=== PATIENT | female | born 1945 | race Asian ===

== ENCOUNTER 2018-09-08 09:08 | Day surgery (SDC) | payer MEDICARE, BC ==
[~2018-09-08] VITALS: Ht 162.6 cm; Wt 58.1 kg
[2018-09-08] MEDS ORDERED: ASPI-1158 MT (10:08)
[2018-09-08] MEDS ORDERED: LOSA100T14 MT (10:08)
[2018-09-08] MEDS ORDERED: SITA1TBM7 MT (10:08)
[2018-09-08] MEDS ORDERED: ATOR20TA MT (10:08)
[2018-09-08] MEDS ORDERED: LEVO50TA8 MT (10:08)
[2018-09-08] MEDS ORDERED: IOHEXOL-300 100 ML BOTTLE ONE (10:25)
[2018-09-08] MEDS ORDERED: ASPIRIN/SOD BICARB/CITRIC ACID 324MG TAB EFF ONE (10:25)
[2018-09-08] MEDS ORDERED: LIDOCAINE HCL 1% 20ML VIAL (Pyxis) INJ ONE (10:26)
[2018-09-08] MEDS ORDERED: IODIXANOL 320MG/ML 100 ML BOTTLE IV ONE (10:26)
[2018-09-08] MEDS ORDERED: FENTANYL CITRATE/PF 50MCG/ML 2ML VIAL ONE (10:44)
[2018-09-08] MEDS ORDERED: MIDAZOLAM HCL 2 MG/2 ML VIAL ONE (10:44)
[2018-09-08] MEDS ORDERED: ATROPINE SULFATE 1MG/10ML SYR IV PRN (11:30)
[2018-09-08] MEDS ORDERED: MORPHINE SULFATE 4 MG/ML CPJ (NOT FOR IM USE) IV PRN (11:30)
[2018-09-08] MEDS ORDERED: ACETAMINOPHEN 325MG TABLET PO PRN (11:30)
[2018-09-08] MEDS ORDERED: ONDANSETRON HCL 4MG/2ML INJ IV PRN (11:30)
[2018-09-08] MEDS ORDERED: NICARDIPINE 100MCG/ML 10ML VIAL (CATH LAB) IV ONE (15:58)
[2018-09-08] MEDS ORDERED: HEPARIN SODIUM 1,000 UNIT/1ML VIAL IV ONE (15:58)
[2018-09-08] MEDS ORDERED: NITROGLYCERIN 50MCG/ML 10ML VIAL (CATH LAB) IV ONE (15:58)
== END 2018-09-08 15:30 | disposition home or self-care (01) ==
LOC: CCL 09:08
PROVIDERS: ATTEND Specialist
DX: I25.10 Atherosclerotic heart disease of native coronary artery without angina pectoris (principal); E78.5 Hyperlipidemia, unspecified; I10 Essential (primary) hypertension; E11.9 Type 2 diabetes mellitus without complications; E78.00 Pure hypercholesterolemia, unspecified; E03.9 Hypothyroidism, unspecified
CPT/HCPCS: 93005; 93458; C1769; C1887; C1893; J1644; J2250; J3010; J3490; Q9967